=== PATIENT | female | born 1975 | race Caucasian/White ===

== ENCOUNTER 2016-10-20 07:59 | Day surgery (SDC) | payer MEDICAID ==
[~2016-10-20 07:59] MED LIST: Ampicillin/Sulbactam Na 3 GM in Sodium Chloride 0.9% 100 ML IV ONE
[2016-10-20] MEDS ORDERED: Sodium Chloride 0.9% 50 ML SDV ONE ×2 (08:10→08:55)
[2016-10-20] MEDS ORDERED: Bupivacaine 0.5% 30 ML SDV ONE (08:10)
[2016-10-20] MEDS ORDERED: Iopamidol 612 MG/ML 50 ML SDV ONE (08:10)
[2016-10-20] MEDS ORDERED: Sodium Chloride 0.9% 10 ML Syringe FLUSH PRN (08:16)
[2016-10-20] MEDS ORDERED: Lidocaine 1%/Sod Bicarbonate in NS 8.4% 1 ML Syringe IV PRN (08:16)
[2016-10-20] MEDS ORDERED: diphenhydrAMINE 50 MG/ML SDV IVPUSH PRN (08:21)
[2016-10-20] MEDS ORDERED: Meperidine PF 50 MG/ML Syringe IVPUSH PRN (08:21)
[2016-10-20] MEDS ORDERED: Ondansetron 4 MG/2 ML SDV IVPUSH PRN (08:21)
[2016-10-20] MEDS ORDERED: Lactated Ringers 1,000 ML IV SCH (08:30)
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
[2016-10-20] MEDS ORDERED: Rocuronium 50 MG/5 ML Vial ONE ×2 (09:02→09:16)
[2016-10-20] MEDS ORDERED: fentaNYL 250 MCG/5 ML SDV ONE (09:03)
[2016-10-20] MEDS ORDERED: Propofol 200 MG/20 ML SDV ONE (09:03)
[2016-10-20] MEDS ORDERED: Midazolam 1 MG/ML 2 ML SDV ONE ×2 (09:03→09:13)
[2016-10-20] MEDS ORDERED: Lidocaine 1% 4 ML ONE (09:16)
[2016-10-20] MEDS ORDERED: Dexamethasone 4 MG/ML SDV ONE (09:16)
[2016-10-20] MEDS ORDERED: Neostigmine Methylsulfate 1 MG/ML 5 ML Syringe ONE (10:16)
[2016-10-20] MEDS ORDERED: Ketorolac 30 MG/ML SDV ONE (10:16)
[2016-10-20] MEDS ORDERED: Ondansetron 4 MG/2 ML SDV ONE (10:16)
[2016-10-20] MEDS ORDERED: Albuterol 6.7 GM Inhaler INH ONE (10:18)
--- NOTE | 2016-10-20 10:43 | CR ---
Operative cholangiogram Technique: Three fluoroscopic spot views were obtained utilizing C-arm device in the operating room. Opacification CHD and CBD is seen as well as proximal intrahepatic ducts. Contrast seen within the duodenum. No filling defects are seen to indicate retained stone. Fluoroscopy time given as 38.7 seconds. Impression: 1. No abnormality is identified on operative cholangiogram exam. Diagnostic code #1
[2016-10-20] MEDS ORDERED: Ketamine 500 mg/10 ML MDV ONE (10:44)
--- NOTE | 2016-10-20 10:47 | PCM.OPNOTE ---
- General Post-Op/Procedure Note Date of Surgery/Procedure: 10/20/16 Operative Procedure(s): lap sonya with IOC Pre Op Diagnosis: cholelithiasis chronic chlecystitis Post-Op Diagnosis: Same Anesthesia Technique: General ET tube Primary Surgeon: Durga Gracia EBL in mLs: 0 Complications: None Condition: Good
[2016-10-20] MEDS ORDERED: HYDROmorphone 0.5 MG/0.5 ML Syringe ONE ×2 (11:02→11:28)
--- NOTE | 2016-10-20 11:02 | PCM.POSTAN ---
POST ANESTHESIA ASSESSMENT - MENTAL STATUS Mental Status: alert - VITAL SIGNS Pulse Rate: 77 SaO2: 95 Resp Rate: 16 Blood Pressure: 116/67 Temperature: 98.4 C - RESPIRATORY Respiratory Status: respiratory rate WNL, airway patent, O2 saturation stable, supplemental oxygen - CARDIOVASCULAR CV Status: pulse rate WNL, blood pressure stable - GASTROINTESTINAL GI Status: no symptoms - PAIN Free Text/Narrative:: resting comfortably - POST OP HYDRATION Hydration Status: adequate & stable
[2016-10-20] MEDS: fentaNYL 100 MCG/2 ML SDV IVPUSH PRN ×3 (11:07→11:43)
[2016-10-20] MEDS ORDERED: Acetaminophen 325 MG Tab PO ONE (11:07)
[2016-10-20] MEDS: HYDROmorphone 0.5 MG/0.5 ML Syringe IVPUSH PRN ×2 (11:08→11:33)
[2016-10-20] MEDS ORDERED: Acetaminophen/HYDROcodone 325-5 MG Tab PO SCH (11:30)
--- NOTE | 2016-10-20 12:29 | PCM48HPAN ---
Post Anesthesia Note - EVALUATION WITHIN 48HRS OF ANESTHETIC Vital Signs in Normal Range: Yes Patient Participated in Evaluation: Yes Respiratory Function Stable: Yes Airway Patent: Yes Cardiovascular Function Stable: Yes Hydration Status Stable: Yes Pain Control Satisfactory: Yes (at baseline level ) Nausea and Vomiting Control Satisfactory: Yes Mental Status Recovered: Yes
[2016-10-20 13:56] VITALS: BP 112/65
--- NOTE | 2016-10-21 08:42 | OR ---
DATE OF OPERATION: 10/20/2016 SURGEON: Durga Gracia MD PREOPERATIVE DIAGNOSIS: Cholelithiasis, chronic cholecystitis. POSTOPERATIVE DIAGNOSIS: Cholelithiasis, chronic cholecystitis. OPERATION PERFORMED: Laparoscopic cholecystectomy, intraoperative cholangiogram. ANESTHESIA: Procedure done under a general anesthetic. ESTIMATED BLOOD LOSS: 0 mL. FINDINGS: Multiple stones in the gallbladder, intraoperative cholangiogram showed normal caliber duct with free flow of dye into the duodenum, in the presence of right and left hepatic duct. DESCRIPTION OF PROCEDURE: The patient was taken to the operating room, placed in a supine position, connected to monitoring equipment, general anesthetic and intubated. SCDs were placed. Antibiotics were given. The abdomen was prepped with DuraPrep, draped off in a sterile fashion. Incision was made just below the umbilicus using OptiPort the abdominal cavity was entered. Pneumoperitoneum established. A 5 mm 0 degree camera inserted, abdominal cavity scanned showing gallbladder in the right upper quadrant. The 10 mm trocar placed in the epigastric position and a 5 mm trocar, 1 placed in a right lateral right upper quadrant. Fundus of the gallbladder was grasped with the retractor, the patient placed in reverse Trendelenburg and Nora pouch identified and retracted caudally. Calot's triangle dissected out showing cystic duct Nora pouch junction and cystic artery, ramifying on to the duct followed by the cystic plate. The clip was placed in the cystic duct Nora pouch junction and 2 clips on the cystic artery. The cystic duct was then opened and milked, no stones were noted except the mucus and a cholangiocatheter was then inserted and secured with a clip and cholangiogram was then obtained using contrast material diluted with equal parts of saline and the C-arm showed the above findings. The cholangiocatheter was removed and 2 clips placed on the cystic duct. Cystic duct was cut and cystic artery was cut the gallbladder was then dissected from its attachment to the liver with electrocautery and placed in an Endobag and removed from the epigastric port. The area was checked. Excellent hemostasis was noted. Estimated blood loss 0 mL and this completed the intraabdominal portion of the procedure. Pneumoperitoneum and ports were removed and the skin of each port closed with subdermal 4-0 Dexon suture. Steri-Strips and sterile dressing placed. The patient tolerated the procedure and sent to recovery room in a stable condition. MMODAL /[id number]
== END 2016-10-20 13:36 | disposition home or self-care (01) ==
LOC: JD.SDS 07:59
PROVIDERS: ATTEND Surgery
DX: K80.10 Calculus of gallbladder with chronic cholecystitis without obstruction (principal); F41.9 Anxiety disorder, unspecified; G47.30 Sleep apnea, unspecified; Z90.49 Acquired absence of other specified parts of digestive tract; Z90.6 Acquired absence of other parts of urinary tract; Z98.890 Other specified postprocedural states; Z91.018 Allergy to other foods; F17.210 Nicotine dependence, cigarettes, uncomplicated
CPT/HCPCS: 47563; 74300; 81025; 88304; A9270; J0295; J1100; J1170; J1885; J2250; J2405; J2710; J3010; J7030; J7120; Q9967; 00790; J2704

== ENCOUNTER 2017-10-18 11:12 | Emergency (ER) | payer MEDICAID ==
[2017-10-18 11:22] VITALS: BP 136/82
[2017-10-18] MEDS ORDERED: diphenhydrAMINE 50 MG/ML SDV IM ONE (11:37)
[2017-10-18] MEDS ORDERED: Ketorolac 60 MG/2 ML SDV IM ONE (11:37)
[2017-10-18] MEDS ORDERED: Ondansetron 4 MG Tab.DIS PO ONE (11:37)
[2017-10-18] MEDS ORDERED: Haloperidol Lactate 5 MG/ML SDV IM ONE (11:37)
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
[2017-10-18] MEDS ORDERED: Haloperidol Lactate 5 MG/ML SDV ONE (12:20)
== END 2017-10-18 12:55 | disposition home or self-care (01) ==
LOC: JD.ED 11:12
DX: G44.209 Tension-type headache, unspecified, not intractable (principal); F31.9 Bipolar disorder, unspecified; F17.210 Nicotine dependence, cigarettes, uncomplicated; Z79.899 Other long term (current) drug therapy; Z91.018 Allergy to other foods
CPT/HCPCS: 96372; 99283; A9270; J1200; J1630; J1885; 99284

== ENCOUNTER 2017-11-10 13:42 | Emergency (ER) | payer MEDICAID ==
[2017-11-10 14:00] VITALS: BP 147/74
== END 2017-11-10 15:15 | disposition left against medical advice (07) ==
LOC: JD.ED 13:42
DX: Z53.21 Procedure and treatment not carried out due to patient leaving prior to being seen by health care provider (principal)

== ENCOUNTER 2018-08-11 19:40 | Emergency (ER) | payer MEDICAID ==
[2018-08-11 19:56] VITALS: BP 131/67
[2018-08-11] MEDS ORDERED: Metoclopramide 10 MG/2 ML SDV IVPUSH ONE (20:14)
[2018-08-11] MEDS ORDERED: diphenhydrAMINE 50 MG/ML SDV IVPUSH ONE (20:14)
[2018-08-11] MEDS ORDERED: Ketorolac 30 MG/ML SDV IVPUSH ONE (20:14)
[2018-08-11] MEDS ORDERED: Sodium Chloride 0.9% 10 ML Syringe FLUSH PRN (20:14)
[2018-08-11] MEDS ORDERED: Sodium Chloride 0.9% 1,000 ML IV SCH (20:15)
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
== END 2018-08-11 21:26 | disposition home or self-care (01) ==
LOC: JD.ED 19:40
DX: G43.909 Migraine, unspecified, not intractable, without status migrainosus (principal); F17.210 Nicotine dependence, cigarettes, uncomplicated; Z88.1 Allergy status to other antibiotic agents; Z88.8 Allergy status to other drugs, medicaments and biological substances; Z91.018 Allergy to other foods; Z79.899 Other long term (current) drug therapy
CPT/HCPCS: 96361; 96374; 96375; 99284; J1200; J1885; J2765; J7040

== ENCOUNTER 2019-09-12 16:00 | Emergency (ER) | payer MEDICAID ==
[2019-09-12 16:12] VITALS: BP 120/68; PULSE 76
[2019-09-12] MEDS ORDERED: Ondansetron 4 MG/2 ML SDV IVPUSH ONE (16:40)
[2019-09-12] MEDS ORDERED: HYDROmorphone 0.5 MG/0.5 ML Syringe IVPUSH ONE ×3 (16:40→20:36)
[2019-09-12] MEDS ORDERED: Sodium Chloride 0.9% 1,000 ML IV SCH (16:45)
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
[2019-09-12] MEDS: Sodium Chloride 0.9% 10 ML Syringe FLUSH PRN ×2 (17:06→18:30)
--- NOTE | 2019-09-12 17:12 | CR ---
Abdomen: Supine and upright views the abdomen were obtained. Scattered gas throughout the colon is seen. This appears nonspecific. Small amount of small bowel gas is also noted which is nonspecific. Calcifications are seen within pelvis compatible with phleboliths. Surgical clips are seen from prior cholecystectomy. No free air is seen. Minimal scoliosis is noted. Impression: 1. Findings as noted above. 2. Nothing acute is seen on 2 view abdominal exam. Diagnostic code #2 Study was dictated in [place] [employer]
[2019-09-12] MEDS ORDERED: Diatrizoate Meglumine/Diatrizoate Sodium 37% 120 ML Bottle PO ONE (17:37)
[2019-09-12] MEDS ORDERED: Iopamidol 612 MG/ML 100 ML Bottle IVPUSH ONE (17:37)
--- NOTE | 2019-09-12 19:00 | CT ---
CT abdomen and pelvis Technique: Multiple axial sections were obtained from above the dome of the diaphragm inferiorly through the pubic symphysis. Intravenous and oral contrast has been given. Comparison: Prior CT abdomen and pelvis study of 09/15/15. Findings: Previous hiatal hernia is not seen on current exam. Visualized lung bases show nothing acute. Liver contains no focal abnormality. Surgical clips are noted from prior cholecystectomy. Spleen appears within normal limits. Adrenal glands show no nodule. Kidneys show symmetric contrast enhancement without hydronephrosis or mass. Pancreas is within normal limits. Aorta shows no aneurysm. No retroperitoneal adenopathy or mesenteric abnormalities are seen. Appendix not visualized. No pelvic mass or adenopathy is appreciated. Prior hysterectomy is noted. No free fluid or inflammatory change is appreciated. Delayed images shows contrast within the distal ureters and within the bladder. Bone window settings were reviewed which appear within normal limits for the patient's age. Impression: 1. Findings as noted above which are believed to be incidental. 2. Nothing acute is appreciated on CT study of the abdomen and pelvis. Diagnostic code #2 This report was dictated in [place] Standard Time
[2019-09-12] MEDS ORDERED: Dicyclomine 10 MG Cap PO ONE (20:18)
== END 2019-09-12 21:00 | disposition home or self-care (01) ==
LOC: JD.ED 16:00
DX: R10.84 Generalized abdominal pain (principal); F17.210 Nicotine dependence, cigarettes, uncomplicated; Z91.018 Allergy to other foods; Z88.0 Allergy status to penicillin; Z88.2 Allergy status to sulfonamides
CPT/HCPCS: 36415; 74019; 74177; 80053; 81001; 82977; 83690; 85025; 86140; 96361; 96374; 96375; 96376; 99285; A9270; J1170; J2405; J7030; Q9963; Q9967

== ENCOUNTER 2020-03-22 20:20 | Emergency (ER) | payer MEDICAID ==
[2020-03-22 20:38] VITALS: BP 132/69; PULSE 86
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
[2020-03-22] MEDS ORDERED: methylPREDNISolone Sodium Succinate 125 MG/2 ML SDV IVPUSH ONE (20:53)
[2020-03-22] MEDS ORDERED: Ketorolac 30 MG/ML SDV IM ONE (20:53)
[2020-03-22] MEDS ORDERED: LORazepam 2 MG/ML SDV IVPUSH ONE (20:54)
[2020-03-22] MEDS ORDERED: Sodium Chloride 0.9% 1,000 ML IV SCH (21:00)
[2020-03-22] MEDS ORDERED: Ketorolac 30 MG/ML SDV IVPUSH STA (21:07)
== END 2020-03-22 22:20 | disposition home or self-care (01) ==
LOC: JD.ED 20:20
DX: T63.441A Toxic effect of venom of bees, accidental (unintentional), initial encounter (principal); R06.4 Hyperventilation; E05.90 Thyrotoxicosis, unspecified without thyrotoxic crisis or storm; F41.9 Anxiety disorder, unspecified; F31.9 Bipolar disorder, unspecified; F17.210 Nicotine dependence, cigarettes, uncomplicated; Z88.1 Allergy status to other antibiotic agents; Z91.018 Allergy to other foods; Z79.899 Other long term (current) drug therapy; Z86.73 Personal history of transient ischemic attack (TIA), and cerebral infarction without residual deficits
CPT/HCPCS: 96374; 96375; 99283; J1885; J2060; J2930; J7030

== ENCOUNTER 2020-03-26 06:47 | Day surgery (SDC) | payer MEDICAID ==
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
[~2020-03-26 06:47] MED LIST changes: +Albuterol 0.083% 2.5 MG/3 ML Neb Soln NEB PRN; -Ampicillin/Sulbactam Na 3 GM in Sodium Chloride 0.9% 100 ML IV ONE; +Lactated Ringers 1,000 ML IV SCH; +Lidocaine 1%/Sod Bicarbonate in NS 8.4% 1 ML Syringe IDERM PRN; +Sodium Chloride 0.9% 10 ML Syringe FLUSH PRN
[2020-03-26] MEDS ORDERED: Lidocaine 1% 4 ML ONE (07:10)
[2020-03-26] MEDS ORDERED: Propofol 200 MG/20 ML SDV ONE (07:10)
[2020-03-26] MEDS ORDERED: fentaNYL 100 MCG/2 ML SDV ONE (07:11)
--- NOTE | 2020-03-26 08:40 | PCM48HPAN ---
Post Anesthesia Note - EVALUATION WITHIN 48HRS OF ANESTHETIC Vital Signs in Normal Range: Yes Patient Participated in Evaluation: Yes Respiratory Function Stable: Yes Airway Patent: Yes Cardiovascular Function Stable: Yes Hydration Status Stable: Yes Pain Control Satisfactory: Yes Nausea and Vomiting Control Satisfactory: Yes Mental Status Recovered: Yes Vital Signs: Last Vital Signs Temp 36.4 C 03/26/20 06:45 Pulse 61 03/26/20 07:44 Resp 16 03/26/20 07:44 BP 122/70 03/26/20 07:44 Pulse Ox 98 03/26/20 07:44
--- NOTE | 2020-03-26 08:41 | PCM.OPNOTE ---
- General Post-Op/Procedure Note Date of Surgery/Procedure: 03/26/20 Operative Procedure(s): EGD Findings: 1. Gastritis 2. Duodenitis 3. Irregular Z-line Pre Op Diagnosis: Nausea, bloating, abodminal pain Post-Op Diagnosis: same Anesthesia Technique: TOÑA Primary Surgeon: Noemy Diaz Anesthesia Provider: Pam See Pathology: 1. Gastric antrum biopsy 2. Duodenal biopsy 3. Z-line biopsies Fluid Replacement, Intraop: 300 Output, Urine Amount: 0 EBL in mLs: 0 Complications: none apparent Condition: Good
--- NOTE | 2020-03-26 08:44 | PCM.PRNOTE ---
- Free Text/Narrative Note: Operative Report Date of procedure: March 26, 2020 Preoperative diagnosis: Gastritis, Nausea, bloating, abdominal pain Postoperative diagnosis: Same Surgeon: Noemy Diaz M.D. Procedure: EGD Anesthesia: MAC Gang Boss: Pam See CRNA IV fluids: 300 mL Estimated blood loss: 0 mL Findings: 1. Gastritis 2. Duodenitis 3. Irregular Z line (GE junction) Specimens: 1. Gastric antrum biopsy 2. Duodenal biopsy 3. Z-line biopsies Indication: The patient is a 44 -year-old lady who presented with findings of abdominal pain, nausea and bloating. The patient's main complaints were consistent with gastritis. The patient was consented for an EGD with intervention. Risk of bleeding and perforation were discussed. The patient's consent was obtained Description of the procedure: The patient was taken to the endoscopy suite and placed on hemodynamic monitoring. The nurse hoop rolls operator induced MAC anesthesia. A bite block was placed. The patient was positioned in the left lateral decubitus position. A timeout was performed. The endoscope was gently placed into the mouth to the back of the pharynx and introduced into the esophagus. The scope was gently advanced under direct visualization down to the level of the lower esophageal sphincter. The stomach was then entered. Normal rugal folds were noted. The scope was advanced into the antrum. We noted erythema in the tissue and punctate areas of hemorrhage. The pylorus was then entered and the first and second portion of the duodenum was inspected. We did note some erythema and friability in the duodenal bulb. Biopsies were taken with cold biopsy forceps. There were no ulcerations in the duodenum. The scope was withdrawn to the antrum and biopsies were taken in this area using a cold biopsy forceps. The scope was then retroflexed in the cardia and fundus were investigated. There was bilious fluid pooled in the stomach, and this was suctioned. There was no evidence of any hiatal hernia. The Z line did look slightly irregular and biopsies were taken in 4 quadrants using a cold biopsy forceps. No other abnormalities were noted. The scope was then withdrawn while inspecting the esophagus. There was no esophagitis. The procedure was terminated. the patient tolerated the procedure well without any evidence of complications. Noemy Diaz MD General Surgery
[2020-03-26 09:41] VITALS: BP 110/63; PULSE 59
== END 2020-03-26 09:18 | disposition home or self-care (01) ==
LOC: JD.SDS 06:47
PROVIDERS: ATTEND Surgery
DX: K29.50 Unspecified chronic gastritis without bleeding (principal); K31.89 Other diseases of stomach and duodenum; K20.9 Esophagitis, unspecified; K29.80 Duodenitis without bleeding; K22.8 Other specified diseases of esophagus; R35.0 Frequency of micturition; F17.210 Nicotine dependence, cigarettes, uncomplicated; G47.33 Obstructive sleep apnea (adult) (pediatric); K21.9 Gastro-esophageal reflux disease without esophagitis; Z91.018 Allergy to other foods; Z88.0 Allergy status to penicillin; Z79.899 Other long term (current) drug therapy; Z88.8 Allergy status to other drugs, medicaments and biological substances; Z87.19 Personal history of other diseases of the digestive system; Z90.49 Acquired absence of other specified parts of digestive tract
CPT/HCPCS: 43239; J2001; J2704; J3010; J7120

== ENCOUNTER 2020-04-28 21:49 | Emergency (ER) | payer MEDICAID ==
[2020-04-28 22:06] VITALS: BP 148/88; PULSE 80
[2020-04-28] MEDS ORDERED: Metoclopramide 10 MG/2 ML SDV IVPUSH ONE (22:08)
[2020-04-28] MEDS ORDERED: Ketorolac 30 MG/ML SDV IVPUSH ONE (22:08)
[2020-04-28] MEDS ORDERED: diphenhydrAMINE 50 MG/ML SDV IVPUSH ONE (22:08)
[2020-04-28] MEDS ORDERED: Sodium Chloride 0.9% 1,000 ML IV STA (22:08)
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
--- NOTE | 2020-04-29 08:01 | CT ---
Head CT Technique: Multiple axial sections through the brain were obtained. Intravenous contrast was not utilized. Comparison: Prior head CT study of 06/26/12 and previous MRI brain of 06/11/13 is available. Findings: Ventricles along with basal cisterns and sulci over the convexities are within normal limits for the patient's age. No abnormal parenchymal densities are seen. No evidence of intracranial hemorrhage. No midline shift or mass-effect is appreciated. Bone window settings were reviewed. Visualized mastoid sinuses and visualized paranasal sinuses show nothing acute. No acute calvarial finding is appreciated. Impression: 1. Nothing acute is appreciated on noncontrast head CT exam. Diagnostic code #1 This report was dictated in MDT I agree with preliminary report from [facility], finalized on 04/28/20, 11:55 PM Central Daylight Time
== END 2020-04-28 23:23 | disposition home or self-care (01) ==
LOC: JD.ED 21:49
DX: G44.209 Tension-type headache, unspecified, not intractable (principal); K21.9 Gastro-esophageal reflux disease without esophagitis; F41.9 Anxiety disorder, unspecified; F31.9 Bipolar disorder, unspecified; Z91.018 Allergy to other foods; Z88.1 Allergy status to other antibiotic agents; Z79.899 Other long term (current) drug therapy; Z90.49 Acquired absence of other specified parts of digestive tract
CPT/HCPCS: 70450; 96361; 96374; 96375; 99283; J1200; J1885; J2765; J7030

== ENCOUNTER 2020-09-17 04:09 | Emergency (ER) | payer MEDICAID ==
[2020-09-17 04:23] VITALS: BP 110/61; PULSE 71
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
[2020-09-17] MEDS: Acetaminophen/HYDROcodone 325-5 MG Tab PO ONE (04:59)
[2020-09-17] MEDS: FLU VACC QS2020-21(6MOS UP)/PF 60 MCG/0.5 ML SYRINGE IM ONE (04:59)
--- NOTE | 2020-09-17 08:56 | CR ---
Left ankle:z 4 views of the left ankle were obtained. Comparison: No prior ankle study is available, ankle is partially seen on prior left tibia and fibula study of 05/17/09. Ankle mortise is symmetric. Small phlebolith is noted anteriorly within the lower anterior leg most likely relating to phlebolith within a varicosity. Soft tissue swelling is identified. No acute fracture, dislocation or other bony abnormality is appreciated. Impression: 1. Soft tissue swelling and phlebolith. 2. No acute osseous finding is appreciated. Diagnostic code #2
== END 2020-09-17 05:25 | disposition home or self-care (01) ==
LOC: JD.ED 04:09
DX: S93.402A Sprain of unspecified ligament of left ankle, initial encounter (principal); K21.9 Gastro-esophageal reflux disease without esophagitis; Z23 Encounter for immunization; Z72.0 Tobacco use; Z91.018 Allergy to other foods; Z88.0 Allergy status to penicillin; Z79.899 Other long term (current) drug therapy; W01.0XXA Fall on same level from slipping, tripping and stumbling without subsequent striking against object, initial encounter
CPT/HCPCS: 73610; 90471; 90686; 99283; A9270; G0008

== ENCOUNTER 2021-06-14 14:49 | Emergency (ER) | payer MEDICAID ==
[2021-06-14 15:53] VITALS: BP 106/56; PULSE 88
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
--- NOTE | 2021-06-14 17:38 | CR ---
Chest: Portable view of the chest was obtained. Comparison: Prior chest x-ray of 12/09/13. Heart size and mediastinum are within normal limits. Minimal density is seen within the right lung base. Lungs otherwise are clear. Bony structures show nothing acute. Impression: 1. Minimal density within the right lung base. Difficult to exclude minimal area of pneumonia and difficult to exclude slight COVID change. 2. Nothing acute is otherwise seen on portable chest x-ray. Diagnostic code #3
== END 2021-06-14 18:13 | disposition left against medical advice (07) ==
LOC: JD.ED 14:49
DX: R05.9 Cough, unspecified (principal); R50.9 Fever, unspecified; R09.89 Other specified symptoms and signs involving the circulatory and respiratory systems; K21.9 Gastro-esophageal reflux disease without esophagitis; Z87.891 Personal history of nicotine dependence; Z91.018 Allergy to other foods; Z88.0 Allergy status to penicillin; Z79.899 Other long term (current) drug therapy; Z20.822 Contact with and (suspected) exposure to COVID-19
CPT/HCPCS: 36415; 71045; 71045-26; 80053; 85007; 85027; 86140; 87804; 99282; 99283-25; U0002

== ENCOUNTER 2021-10-06 17:41 | Emergency (ER) | payer OTHER, MEDICAID ==
[2021-10-06 18:00] VITALS: BP 154/83; PULSE 45
[2021-10-06] MEDS ORDERED: Ketorolac 60 MG/2 ML SDV IM ONE (20:28)
[2021-10-06] MEDS ORDERED: HYDROmorphone 1 MG/ML Syringe IM ONE (20:28)
[2021-10-06] MEDS ORDERED: Cyclobenzaprine 10 MG Tab PO ONE (20:28)
== END 2021-10-06 22:15 | disposition home or self-care (01) ==
LOC: JD.ED 17:41
DX: S16.1XXA Strain of muscle, fascia and tendon at neck level, initial encounter (principal); M54.50 Low back pain, unspecified; K21.9 Gastro-esophageal reflux disease without esophagitis; Z88.0 Allergy status to penicillin; Z91.018 Allergy to other foods; Z86.73 Personal history of transient ischemic attack (TIA), and cerebral infarction without residual deficits; V89.2XXA Person injured in unspecified motor-vehicle accident, traffic, initial encounter; Y92.410 Unspecified street and highway as the place of occurrence of the external cause
CPT/HCPCS: 72125; 72131; 96372; 99284; A9270; J1170; J1885

== ENCOUNTER 2022-01-06 23:38 | Emergency (ER) | payer OTHER, MEDICAID ==
[2022-01-06] MEDS ORDERED: fentaNYL 100 MCG/2 ML SDV IVPUSH ONE (23:44)
[2022-01-06] MEDS ORDERED: Lactated Ringers 1,000 ML IV ONE (23:44)
[2022-01-06] MEDS ORDERED: Sodium Chloride 0.9% 100 ML IV SCH (23:45)
[2022-01-06] MEDS ORDERED: Iopamidol 612 MG/ML 100 ML Bottle IVPUSH ONE (23:48)
[2022-01-06] MEDS ORDERED: Iopamidol 612 MG/ML 50 ML SDV IVPUSH ONE (23:49)
[2022-01-06 23:52] VITALS: BP 126/77; PULSE 74
[2022-01-06] MEDS: Sodium Chloride 0.9% 10 ML Syringe FLUSH ONE (23:56)
[2022-01-07] MEDS: Sodium Chloride 0.9% 10 ML Syringe FLUSH ONE (00:22)
== END 2022-01-07 02:11 | disposition home or self-care (01) ==
LOC: JD.ED 23:38
DX: S22.019A Unspecified fracture of first thoracic vertebra, initial encounter for closed fracture (principal); K21.9 Gastro-esophageal reflux disease without esophagitis; Z86.73 Personal history of transient ischemic attack (TIA), and cerebral infarction without residual deficits; Z90.49 Acquired absence of other specified parts of digestive tract; Z90.710 Acquired absence of both cervix and uterus; Z79.899 Other long term (current) drug therapy; Z91.018 Allergy to other foods; Z88.0 Allergy status to penicillin; Z88.1 Allergy status to other antibiotic agents; V49.40XA Driver injured in collision with unspecified motor vehicles in traffic accident, initial encounter; Y92.410 Unspecified street and highway as the place of occurrence of the external cause
CPT/HCPCS: 36415; 70450; 70450-26; 71260; 71260-26; 72125; 72125-26; 72128; 72128-26; 72131; 72131-26; 73090-26-LT; 73090-LT; 74177; 74177-26; 80053; 85025; 85610; 96374; 99284-25; J3010; J3490; J7120; Q9967

== ENCOUNTER 2022-06-25 01:11 | Emergency (ER) | payer MEDICAID ==
[2022-06-25] MEDS ORDERED: Ibuprofen 600 MG Tab PO ONE (01:47)
[2022-06-25 02:12] VITALS: BP 140/87; PULSE 71
== END 2022-06-25 01:55 | disposition home or self-care (01) ==
LOC: JD.ED 01:11
DX: S01.112A Laceration without foreign body of left eyelid and periocular area, initial encounter (principal); Z91.018 Allergy to other foods; Z88.1 Allergy status to other antibiotic agents; Z79.899 Other long term (current) drug therapy; Z90.49 Acquired absence of other specified parts of digestive tract; Z90.710 Acquired absence of both cervix and uterus; W22.8XXA Striking against or struck by other objects, initial encounter
CPT/HCPCS: 99282; A9270

== ENCOUNTER 2022-07-21 07:17 | Day surgery (SDC) | payer MEDICAID ==
[~2022-07-21 07:17] MED LIST changes: -Albuterol 0.083% 2.5 MG/3 ML Neb Soln NEB PRN; +Sodium Chloride 0.9% 10 ML Syringe FLUSH SCH
[2022-07-21] MEDS ORDERED: Propofol 200 MG/20 ML SDV ONE (08:04)
[2022-07-21] MEDS ORDERED: fentaNYL 100 MCG/2 ML SDV ONE (08:05)
[2022-07-21] MEDS ORDERED: Lidocaine 1% 6 ML ONE (08:05)
[2022-07-21] MEDS ORDERED: Midazolam 1 MG/ML 2 ML SDV ONE (08:05)
[2022-07-21] MEDS ORDERED: Lactated Ringers 1,000 ML ONE (09:02)
[2022-07-21] MEDS ORDERED: Phenylephrine HCl In 0.9% NaCl 1 MG/10 ML Vial ONE (09:03)
[2022-07-21 09:57] VITALS: BP 110/60; PULSE 80
== END 2022-07-21 10:20 | disposition home or self-care (01) ==
LOC: JD.SDS 07:17
PROVIDERS: ATTEND Surgery
DX: K62.1 Rectal polyp (principal); K63.5 Polyp of colon; K29.70 Gastritis, unspecified, without bleeding; K64.8 Other hemorrhoids; G43.909 Migraine, unspecified, not intractable, without status migrainosus; K21.9 Gastro-esophageal reflux disease without esophagitis; K59.00 Constipation, unspecified; E87.6 Hypokalemia; F41.9 Anxiety disorder, unspecified; D64.9 Anemia, unspecified; R63.4 Abnormal weight loss; G47.33 Obstructive sleep apnea (adult) (pediatric); J45.909 Unspecified asthma, uncomplicated; F31.9 Bipolar disorder, unspecified; E05.90 Thyrotoxicosis, unspecified without thyrotoxic crisis or storm; Z90.49 Acquired absence of other specified parts of digestive tract; Z98.890 Other specified postprocedural states; Z88.0 Allergy status to penicillin; Z91.018 Allergy to other foods; Z87.891 Personal history of nicotine dependence; Z68.24 Body mass index [BMI] 24.0-24.9, adult; Z86.16 Personal history of COVID-19
CPT/HCPCS: 43239; 45380; J2250; J2704; J3010; J7120

== ENCOUNTER 2022-09-05 23:31 | Emergency (ER) | payer MEDICAID ==
[2022-09-05 23:40] VITALS: BP 119/82; PULSE 75
[2022-09-06] MEDS ORDERED: Ondansetron 4 MG Tab.DIS PO ONE (00:57)
== END 2022-09-06 01:02 | disposition left against medical advice (07) ==
LOC: JD.ED 23:31
DX: R55 Syncope and collapse (principal); F10.10 Alcohol abuse, uncomplicated; K21.9 Gastro-esophageal reflux disease without esophagitis; E05.90 Thyrotoxicosis, unspecified without thyrotoxic crisis or storm; F17.210 Nicotine dependence, cigarettes, uncomplicated; Z86.73 Personal history of transient ischemic attack (TIA), and cerebral infarction without residual deficits; Z88.0 Allergy status to penicillin; Z91.018 Allergy to other foods; Z79.899 Other long term (current) drug therapy; Z86.16 Personal history of COVID-19
CPT/HCPCS: 99283; 99285

== ENCOUNTER 2023-05-10 09:50 | Emergency (ER) | payer BC ==
[2023-05-10 10:09] VITALS: PULSE 58
[2023-05-10] MEDS: Sodium Chloride 0.9% 1,000 ML IV SCH (11:41)
[2023-05-10] MEDS: Ketorolac 30 MG/ML SDV IVPUSH ONE (11:41)
[2023-05-10] MEDS: Ondansetron 4 MG/2 ML SDV IVPUSH ONE (11:41)
[2023-05-10 11:42] LABS: BASOPHILS ABSOLUTE AUTO 0.1 K/mm3 (0.0-0.2); BASOPHILS PERCENT AUTO 0.7 % (0.0-1.0); EOSINOPHILS ABSOLUTE AUTO 0.1 K/mm3 (0.0-0.4); EOSINOPHILS PERCENT AUTO 0.9 % (0.0-6.0); HEMATOCRIT 43.2 % (37.0-47.0); HEMOGLOBIN 14.4 gm/dl (12.0-16.0); IMMATURE GRAN ABSOLUTE AUTO 0.02 K/mm3 (0.00-0.05); IMMATURE GRAN PERCENT AUTO 0.3 % (0.0-0.4); LYMPHOCYTES ABSOLUTE AUTO 2.1 K/mm3 (1.0-4.8); LYMPHOCYTES PERCENT AUTO 30.5 % (24.0-44.0); MEAN CORPUSCULAR HGB CONC 33.3 g/dl (32.0-36.0); MEAN CORPUSCULAR VOLUME 93.1 fl (83.0-99.0); MONOCYTES ABSOLUTE AUTO 0.3 K/mm3 (0.0-0.8); MONOCYTES PERCENT AUTO 4.9 % (0.0-8.0); NEUTROPHILS ABSOLUTE AUTO 4.2 K/mm3 (1.8-7.7); NEUTROPHILS PERCENT AUTO 62.7 % (41.0-71.0); PLATELET COUNT,PLT 291 K/mm3 (150-400); RED BLOOD CELL COUNT 4.64 M/mm3 (4.10-5.30); WHITE BLOOD CELL COUNT,WBC 6.73 K/mm3 (3.9-11.3)
[2023-05-10] MEDS: Sodium Chloride 0.9% 10 ML Syringe FLUSH PRN (11:46)
[2023-05-10 11:49] VITALS: BP 116/68
[2023-05-10 12:03] LABS: A/G RATIO 1.3 (1-2); ALBUMIN 4.1 g/dl (3.4-5.0); ANION GAP 10.7 (5-15); BILIRUBIN TOTAL 0.7 mg/dL (0.2-1.0); BUN/CREATININE RATIO 22.2 (14-18); CALCIUM 9.3 mg/dL (8.5-10.1); CREATININE 0.9 mg/dL (0.55-1.02); EST CRCL DRUG DOSING (CG) 63.24 mL/min; POTASSIUM,K 3.7 mEq/L (3.5-5.1); PROTEIN TOTAL,TP 7.2 g/dl (6.4-8.2)
== END 2023-05-10 13:25 | disposition home or self-care (01) ==
LOC: JD.ED 09:50
DX: J44.1 Chronic obstructive pulmonary disease with (acute) exacerbation (principal); R00.1 Bradycardia, unspecified; Z86.16 Personal history of COVID-19; Z88.0 Allergy status to penicillin; Z88.1 Allergy status to other antibiotic agents; Z91.018 Allergy to other foods; Z79.899 Other long term (current) drug therapy; Z20.822 Contact with and (suspected) exposure to COVID-19
CPT/HCPCS: 36415; 71046; 71046-26; 80053; 84484; 85025; 85379; 93005; 93010; 93246; 96374; 96375; 99284; 99285-25; J1885; J2405; J3490; J7030; U0002

== ENCOUNTER 2023-11-21 03:02 | Emergency (ER) | payer BC ==
[2023-11-21] MEDS: Oxymetazoline 0.05% Nasal Spray 30 ML Bottle NAS ONE (03:42)
[2023-11-21 04:07] LABS: BASOPHILS ABSOLUTE AUTO 0.1 K/mm3 (0.0-0.2); BASOPHILS PERCENT AUTO 0.4 % (0.0-1.0); EOSINOPHILS ABSOLUTE AUTO 0.1 K/mm3 (0.0-0.4); EOSINOPHILS PERCENT AUTO 0.7 % (0.0-6.0); HEMATOCRIT 43.8 % (37.0-47.0); HEMOGLOBIN 14.6 gm/dl (12.0-16.0); IMMATURE GRAN ABSOLUTE AUTO 0.11 K/mm3 (0.00-0.05); IMMATURE GRAN PERCENT AUTO 0.7 % (0.0-0.4); LYMPHOCYTES ABSOLUTE AUTO 2.2 K/mm3 (1.0-4.8); LYMPHOCYTES PERCENT AUTO 14.8 % (24.0-44.0); MEAN CORPUSCULAR HEMOGLOBIN 30.3 pg (28.0-32.0); MEAN CORPUSCULAR HGB CONC 33.3 g/dl (32.0-36.0); MEAN CORPUSCULAR VOLUME 90.9 fl (83.0-99.0); MONOCYTES ABSOLUTE AUTO 0.5 K/mm3 (0.0-0.8); MONOCYTES PERCENT AUTO 3.3 % (0.0-8.0); NEUTROPHILS ABSOLUTE AUTO 12.2 K/mm3 (1.8-7.7); NEUTROPHILS PERCENT AUTO 80.1 % (41.0-71.0); PLATELET COUNT,PLT 332 K/mm3 (150-400); RED BLOOD CELL COUNT 4.82 M/mm3 (4.10-5.30); WHITE BLOOD CELL COUNT,WBC 15.17 K/mm3 (3.9-11.3)
[2023-11-21] MEDS: Ondansetron 4 MG/2 ML SDV IVPUSH ONE (04:14)
[2023-11-21] MEDS: LORazepam 2 MG/ML SDV IVPUSH ONE (04:15)
[2023-11-21] MEDS: Pantoprazole 40 MG Vial IVPUSH ONE (04:15)
[2023-11-21] MEDS: Sodium Chloride 0.9% 1,000 ML IV ONE (04:15)
[2023-11-21] MEDS: Morphine 4 MG/ML Syringe IVPUSH ONE (04:15)
[2023-11-21 04:29] LABS: INR 0.97; PROTHROMBIN TIME 10.4 SECONDS (9.7-12.0)
[2023-11-21 04:31] LABS: A/G RATIO 1.3 (1-2); ALBUMIN 3.9 g/dl (3.4-5.0); ANION GAP 15.4 (5-15); BILIRUBIN TOTAL 0.4 mg/dL (0.2-1.0); BUN/CREATININE RATIO 11.3 (14-18); CALCIUM 8.4 mg/dL (8.5-10.1); CREATININE 0.8 mg/dL (0.55-1.02); EST CRCL DRUG DOSING (CG) 71.14 mL/min; ETHANOL BLOOD MEDICAL 0.26 gm% (0.00); MAGNESIUM 2.1 mg/dL (1.8-2.4); POTASSIUM,K 3.4 mEq/L (3.5-5.1); PTT,PARTIAL THROMBOPLSTIN TIME 26.5 SECONDS (21.7-31.4)
[2023-11-21 05:35] LABS: APPEARANCE,URINE CLEAR (Clear); BILIRUBIN,URINE NEGATIVE (Negative); COLOR,URINE LIGHT YELLOW (Yellow); GLUCOSE,URINE NEGATIVE (Negative); KETONES,URINE NEGATIVE (Negative); LEUKOCYTE ESTERASE,URINE NEGATIVE (Negative); NITRITE,URINE NEGATIVE (Negative); OCCULT BLOOD,URINE 1+ (Negative); PROTEIN,URINE NEGATIVE (Negative); UROBILINOGEN,URINE 0.2 (0.2-1.0)
[2023-11-21 06:14] LABS: BARBITURATE SCREEN,URINE NEGATIVE (CUTOFF=200); BENZODIAZEPINES SCREEN,URINE NEGATIVE (CUTOFF=150); BUPRENORPHINE SCREEN,URINE NEGATIVE (CUTOFF=10); METHADONE SCREEN, URINE NEGATIVE (CUTOFF=200); METHAMPHETAMINES SCREEN, URINE NEGATIVE (CUTOFF=500); OXYCODONE SCREEN,URINE NEGATIVE (CUT0FF=100); THC SCREEN,URINE 20 NG/ML PRESUMPTIVE POSITIVE (CUTOFF=50)
[2023-11-21] MEDS: cefTRIAXone 1 GM in Sodium Chloride 0.9% 100 ML IV ONE (06:19)
[2023-11-21] MEDS: Diphtheria,Pertussis(Acell),Tetanus Vaccine 0.5 ML Syringe IM ONE (06:21)
[2023-11-21 06:24] LABS: AMPHETAMINES SCREEN, URINE NEGATIVE (CUTOFF=500)
[2023-11-21 08:37] LABS: EPITHELIAL CELLS,URINE 0-5 /hpf (0-5); RBC,URINE 0-5 /hpf (0-5); WBC,URINE 0-5 /hpf (0-5)
[2023-11-21 08:41] LABS: BACTERIA,URINE RARE /hpf (FEW); MUCUS,URINE RARE /hpf (FEW)
[2023-11-21 09:47] VITALS: BP 111/63; PULSE 68
== END 2023-11-21 09:45 | disposition home or self-care (01) ==
LOC: JD.ED 03:02
DX: S02.31XA Fracture of orbital floor, right side, initial encounter for closed fracture (principal); S02.2XXB Fracture of nasal bones, initial encounter for open fracture; F10.120 Alcohol abuse with intoxication, uncomplicated; J44.9 Chronic obstructive pulmonary disease, unspecified; Z86.16 Personal history of COVID-19; Z79.899 Other long term (current) drug therapy; Z87.891 Personal history of nicotine dependence; Z88.1 Allergy status to other antibiotic agents; Z91.018 Allergy to other foods; X58.XXXA Exposure to other specified factors, initial encounter
CPT/HCPCS: 36415; 70450; 70450-26; 70486; 70486-26; 71045; 71045-26; 72125; 72125-26; 73030-26-LT; 73030-LT; 80053; 80306; 80307; 81001; 83735; 85025; 85610; 85730; 90471; 90715; 96361; 96365; 96375; 99285; 99285-25; A9270-GY; C9113; J0696; J2060; J2270; J2405; J3490; J7030